=== PATIENT | female | born 1955 | race Caucasian/White ===

== ENCOUNTER 2023-08-03 07:03 | Day surgery (SDC) | payer MEDICARE, MEDICAID ==
[2023-07-27 12:26] LABS: BILIRUBIN,URINE NEGATIVE (Neg); CLARITY,URINE SLIGHTLY CLOUDY (Clear); COLOR,URINE STRAW (Yellow); GLUCOSE, URINE NEGATIVE (Neg); KETONES,URINE NEGATIVE (Neg); LEUKOCYTE ESTERASE ,URINE NEGATIVE (Neg); NITRITES, URINE NEGATIVE (Neg); OCCULT BLOOD,URINE NEGATIVE (Neg); PROTEIN,URINE NEGATIVE (Neg); UROBILINOGEN,URINE 0.2 E.U/dL (0.2-1.0)
[2023-07-27 12:27] LABS: BASOPHILS % (AUTO) 0.5 % (0-1); EOSINOPHILS % (AUTO) 0.5 % (0-6); LYMPHOCYTES % (AUTO) 21.1 % (21-51); MEAN CORPUSCULAR HEMOGLOBIN 32.3 PG (27.0-31.0); MEAN CORPUSCULAR HGB CONC 33.9 g/dL (33.0-36.5); MEAN CORPUSCULAR VOLUME 95.5 FL (78-98); MONOCYTES # (AUTO) 0.5 X10'3 (0-0.9); MONOCYTES % (AUTO) 11.3 % (2-12); NEUTROPHILS # (AUTO) 3.1 X10'3 (1.8-7.7); NEUTROPHILS % (AUTO) 66.6 % (42-75); PRE OP HEMATOCRIT 40.7 % (35.0-45.0); PRE OP HEMOGLOBIN 13.8 g/dL (12.0-16.0); PRE OP PLATELET COUNT 180 X10'3 (140-440); PRE OP WHITE BLOOD COUNT 4.6 10'3 (4.8-10.8); RED BLOOD COUNT 4.26 X10'6 (4.20-5.60); RED CELL DISTRIBUTION WIDTH 13.2 % (11.5-14.5)
[2023-07-27 12:34] LABS: UA COLLECTION TYPE CLN CATCH MIDSTREAM
[2023-07-27 12:35] LABS: SQUAMOUS EPITHELIAL CELL,UR MODERATE /LPF (FEW)
[2023-07-27 12:36] LABS: BACTERIA,URINE NONE SEEN /HPF (Neg); RBC,URINE 0-2 /HPF (0-2); WBC,URINE 0-4 /HPF (0-4)
[2023-07-27 12:47] LABS: ALBUMIN 3.6 G/DL (3.4-5.0); ALBUMIN/GLOBULIN RATIO 1.2 (1.1-1.5); ALKALINE PHOSPHATASE 86 IU/L (46-116); BLOOD UREA NITROGEN 32 MG/DL (7-18); BUN/CREATININE RATIO 27.8 (10.0-20.0); CALCIUM 9.1 MG/DL (8.5-10.1); CHLORIDE 103 MMOL/L (99-107); CREATININE 1.15 MG/DL (0.40-0.90); PRE OP ALT 24 U/L (30-65); PRE OP ANION GAP 5 (8-16); PRE OP AST 16 U/L (10-37); PRE OP BILIRUB, TOTAL 0.3 MG/DL (0.0-1.0); PRE OP GLUCOSE 96 MG/DL (70-104); PRE OP SODIUM 139 MMOL/L (135-145); TOTAL CARBON DIOXIDE 31.5 MMOL/L (24-32); TOTAL PROTEIN 6.7 G/DL (6.4-8.2); eGFR 47 ML/MIN
[~2023-08-03] VITALS: Ht 165.1 cm; Wt 56.6 kg
[~2023-08-03 07:03] MED LIST: ACETAMINOPHEN; ARIP15TA19 PO; CITRACAL; CYCL5.5D EACHEYE; DENO60DI SUBCUT; DOCUMENT DATE & TIME OF BETA-BLOCKER PO ONE; INDLA80C PO; LEVO75TA7 PO; MIRALAX; MULTIVITAMIN; QUET400T13 PO; SIMV-42 PO; TAMO20TA4 PO; TUMS; VENL150C58 PO; ceFOXitin 2GM-NS 100mL ADDvant 100 ML IV ONE; famotidine 20mg tablet PO ONE; ringers solution, lacted 1,000 ML IV SCH
[2023-08-03 08:30] VITALS: BP 100/67; PULSE 72; RESP 14; TEMP 97.4; O2SAT 98
[2023-08-03] MEDS ORDERED: fentaNYL/PF 50MCG/1 ML 2ML syringe ONE (08:45)
[2023-08-03] MEDS ORDERED: midazolam 1 mg/ML 2ml injection ONE (08:45)
[2023-08-03] MEDS ORDERED: propofol inj 20 ML IV ONE (08:45)
[2023-08-03] MEDS ORDERED: sevoflurane 250ml liquid IH ONE (08:47)
[2023-08-03] MEDS ORDERED: dexamethasone sod phosphate 4mg/ml inj. ONE (09:11)
[2023-08-03] MEDS ORDERED: ondansetron/PF 4mg/2ml inj ONE (09:11)
[2023-08-03 09:23] VITALS: BP 129/78; PULSE 70; RESP 14; O2SAT 99
--- NOTE | 2023-08-03 09:23 | NUR ---
Received from OR via [facility], accompanied by Anesthesiologist and report given by Anesthesiologist. PATIENT ALERT & AWAKE, DENIES PAIN, V/S WNL, 20G TO RIGHT FOREARM, SHARAD PAD IS CDI. PT RESTING COMFORTABLY. WILL CONTINUE TO ASSESS. Addendum: 08/03/23 at 0935 by Vishnu Botello RN Amended: Links added.
[2023-08-03 09:30] VITALS: BP 119/73; PULSE 67; RESP 11; O2SAT 100
[2023-08-03] MEDS ORDERED: ondansetron/PF 4mg/2ml inj IV PRN (09:30)
[2023-08-03] MEDS ORDERED: morphine 2 MG/ML inj. syringe IV PRN (09:30)
[2023-08-03] MEDS ORDERED: morphine 4 MG/ML inj SYRINge IV PRN (09:30)
[2023-08-03] MEDS ORDERED: proCHLORperazine 10 MG/2 ml inj IV PRN (09:30)
[2023-08-03] MEDS ORDERED: ringers solution, lacted 1,000 ML IV SCH (09:30)
[2023-08-03] MEDS ORDERED: meperidine/PF 25mg/ml syringe IV PRN ×3 (09:30)
[2023-08-03 09:40] VITALS: BP 100/52; PULSE 63; RESP 22; O2SAT 100
[2023-08-03 09:50] VITALS: BP 112/71; PULSE 64; RESP 12; O2SAT 99
[2023-08-03 10:00] VITALS: BP 100/52; PULSE 62; RESP 14; O2SAT 98
--- NOTE | 2023-08-03 10:03 | NUR ---
ALL DISCHARGE CRITERIA HAS BEEN MET. VSS, PAIN AT A TOLERABLE LEVEL, ABLE TO SAFELY AMBULATE AND TRANSFER SELF. IV TAKEN OUT WITHOUT ANY COMPLICATIONS. ALL DISCHARGE INSTRUCTIONS COVERED WITH PATIENT AND ALL QUESTIONS ANSWERED. PATIENT TAKEN OUT VIA WHEELCHAIR WITH ALL BELONGINGS TO PERSONAL VEHICLE WHERE FRIEND DROVE PATIENT HOME. Addendum: 08/03/23 at 1010 by Vishnu Botello RN Amended: Links added.
== END 2023-08-03 10:03 | disposition home or self-care (01) ==
LOC: PAS 07:03
PROVIDERS: ATTEND Obstetrics & Gynecology Obstetrics
DX: N95.0 Postmenopausal bleeding (principal); N85.8 Other specified noninflammatory disorders of uterus; E78.5 Hyperlipidemia, unspecified; G43.909 Migraine, unspecified, not intractable, without status migrainosus; F31.9 Bipolar disorder, unspecified; E03.9 Hypothyroidism, unspecified; M81.0 Age-related osteoporosis without current pathological fracture; N18.2 Chronic kidney disease, stage 2 (mild); Z85.3 Personal history of malignant neoplasm of breast; Z79.899 Other long term (current) drug therapy; Z90.13 Acquired absence of bilateral breasts and nipples; Z98.890 Other specified postprocedural states; Z88.2 Allergy status to sulfonamides
CPT/HCPCS: 36415; 58558; 71046; 80053; 81001; 82948; 85025; 86885; 86900; 86901; 93005; J0694; J1100; J2250; J2405; J2704; J3010; J7030; J7120; Z7506; Z7512; A4355; A4618; A6258; A7000